=== PATIENT | female | born 1960 | race Caucasian/White ===

== ENCOUNTER 2018-09-28 20:52 | Emergency (ER) | payer BC, OTHER ==
[~2018-09-28] VITALS: Ht 162.6 cm; Wt 81.6 kg
[2018-09-28 22:33] VITALS: BP_SYST 139
--- NOTE | 2018-09-28 22:41 | NUR ---
Dr. Cummins performs MSE in triage room. Pt placed to ER waiting room in stable condition.
--- NOTE | 2018-09-28 22:56 | NUR ---
Splint to LUE removed. No obvious deformity noted. Pt to x-ray.
--- NOTE | 2018-09-28 23:23 | NUR ---
2323 - Patient to ER bed 3 to gown for evaluation. Side rails up. Report given to BENJI Ballard
--- NOTE | 2018-09-28 23:30 | NUR ---
Patient AOx4, ambulatory, presents to ER with complaint of pain 10/10 to left arm radiating to left hand. Patient states that the fell earlier today and landed on left arm. Patient states that she tripped over something as she was walking. Patient was seen at urgent care and promted to come to ER for further eval. Patient presents with a splint to LFA and shoulder immobilizer. No other symptoms or complaints.
[2018-09-28] MEDS ORDERED: PROPOFOL DRIP 100 ML IV ONE (23:38)
--- NOTE | 2018-09-28 23:45 | NUR ---
ER MD Cummins at bedside to initiate moderate sedation procedure.
--- NOTE | 2018-09-28 23:46 | NUR ---
See Moderate Sedation Record placed in chart.
--- NOTE | 2018-09-28 23:46 | NUR ---
"Time out" called and information verified.
[2018-09-29] MEDS ORDERED: PROPOFOL 200MG/ 20ML VIAL (DIPRIVAN) IV ONE
[2018-09-29] MEDS ORDERED: MORPHINE 4 MG/ML INJ. SYRINGE IVP ONE (00:15)
[2018-09-29 00:41] VITALS: BP_SYST 122
--- NOTE | 2018-09-29 00:41 | NUR ---
Patient given written and verbal discharge instructions and verbalizes understanding. ER MD discussed with patient the results and treatment provided. Patient in stable condition. ID arm band removed. IV catheter removed intact and dressing applied, no active bleeding. Rx of Naproxen, Zofran, and [place] 5/325mg given. Patient educated on pain management and to follow up with PMD. Pain Scale 2/10 tolerable to patient. Opportunity for questions provided and answered. Medication side effect fact sheet provided.
== END 2018-09-29 00:41 | disposition home or self-care (01) ==
LOC: SED 20:52
DX: S52.122A Displaced fracture of head of left radius, initial encounter for closed fracture (principal); R03.0 Elevated blood-pressure reading, without diagnosis of hypertension; Z90.89 Acquired absence of other organs; Z88.0 Allergy status to penicillin; Z88.1 Allergy status to other antibiotic agents; Z88.5 Allergy status to narcotic agent; Z88.8 Allergy status to other drugs, medicaments and biological substances; W19.XXXA Unspecified fall, initial encounter; Y93.89 Activity, other specified; Y92.89 Other specified places as the place of occurrence of the external cause; Y99.8 Other external cause status
CPT/HCPCS: 24600; 73070; 73080; 73110; 96374; 99284; J2270; J2704